=== PATIENT | female | born 1980 | race Caucasian/White ===

== ENCOUNTER 2024-11-01 10:03 | Day surgery (SDC) | payer BC, OTHER ==
[2024-10-28 12:34] VITALS: BMI 22.9
[2024-11-01] MEDS ORDERED: KETOROLAC TROMETHAMINE 30 MG/1 ML VIAL ONE (11:55)
[2024-11-01 13:36] VITALS: RESP 20; TEMP 97.3
[2024-11-01 13:54] VITALS: BP 110/64; PULSE 60
== END 2024-11-01 13:05 | disposition home or self-care (01) ==
LOC: FASU-ENDO 10:03
PROVIDERS: ATTEND Internal Medicine Gastroenterology
PROC: 0DJD8ZZ Inspection of Lower Intestinal Tract, Via Natural or Artificial Opening Endoscopic (ICD-10-PCS; principal; 2024-11-01 11:58)
DX: Z12.11 Encounter for screening for malignant neoplasm of colon (principal); K64.1 Second degree hemorrhoids
CPT/HCPCS: 81025